=== PATIENT | female | born 1965 | race Caucasian/White ===

== ENCOUNTER → 2019-09-08 | Outpatient (CLI) | payer BC ==
[~2019-09-08] MED LIST: CRANBERRY PO; DETROL LA4 MG PO; DOCUPRENE100 MG PO; IBUPROFEN 800800 M1 PO; MULTIVITAMINS PO; VICODIN ES TAB1 EACH PO; VITAMIN C PO
== END ==
LOC: M.RAD 15:19
DX: Z12.31 Encounter for screening mammogram for malignant neoplasm of breast (principal)